=== PATIENT | male | born 1960 | race Caucasian/White ===

== ENCOUNTER → 2018-04-15 | Outpatient (CLI) | payer OTHER ==
[~2018-04-15] MED LIST: BAZA CR.1 E1 TOP; CLONAZEPAM 1 MG1 M1 PO; EFFEXOR XR37.5 MG PO; ENOXAPARIN40 MG/0.1 SUBQ; MIRALAX17 G1 PO; NEURONTIN600 MG PO; PEPCID20 MG PO; RESTORIL15 MG PO; ROXICODONE5 M2 PO; THEREMS1 EAC1 PO; TIZANIDINE HCL4 M1 PO; ZOFRAN ODT4 MG PO
== END ==
LOC: CAT 06:37
DX: K86.2 Cyst of pancreas (principal); M86.8X8 Other osteomyelitis, other site